=== PATIENT | female | born 1985 | race Two or more races ===

== ENCOUNTER 2017-10-17 10:07 | Emergency (ER) | payer SELFPAY ==
[~2017-10-17] VITALS: Ht 160 cm; Wt 123.0 kg
[2017-10-17 10:09] VITALS: BP 142/50
== END 2017-10-17 10:38 | disposition home or self-care (01) ==
LOC: ED 10:33
DX: H00.021 Hordeolum internum right upper eyelid (principal)
CPT/HCPCS: 99283